=== PATIENT | female | born 1955 | race Caucasian/White ===

== ENCOUNTER 2021-01-31 05:32 | Day surgery (SDC) | payer OTHER ==
[2021-01-31] MEDS ORDERED: Lactated Ringers 1,000 ML IV SCH (06:00)
[2021-01-31] MEDS ORDERED: Nozin Nasal Sanitizer NASBOTH ONE (06:00)
[2021-01-31] MEDS ORDERED: Bupivacaine 0.5% 30 ML SDV ONE ×2 (06:34→07:27)
[2021-01-31] MEDS ORDERED: ceFAZolin 1 GM in Premix Bag 1 BAG IV ONE (07:00)
[2021-01-31] MEDS ORDERED: Propofol 200 MG/20 ML SDV ONE ×2 (07:26→08:40)
[2021-01-31] MEDS ORDERED: Midazolam 1 MG/ML 2 ML SDV ONE (07:26)
[2021-01-31] MEDS ORDERED: fentaNYL 100 MCG/2 ML SDV ONE (07:26)
[2021-01-31] MEDS ORDERED: Lactated Ringers 1,000 ML ONE (08:42)
--- NOTE | 2021-02-07 14:38 | OR ---
DATE OF PROCEDURE: 01/31/2021 SURGEON: Jude Silva MD PREOPERATIVE DIAGNOSIS: Recurrent rotator cuff tear, right shoulder. POSTOPERATIVE DIAGNOSIS: Recurrent partial-thickness rotator cuff tear, right shoulder with loose sutures from previous repair. PROCEDURE: Arthroscopy, right shoulder, with repair of rotator cuff. RESIDENTIAL DESIGNER: KELLIE Nieves. ANESTHESIA: Interscalene block with sedation. INDICATIONS: Aisha is a 65-year-old female with a history of previous rotator cuff repair. She had been doing well with this and was back to normal activities. She recently lifted a heavy object and felt a pull in the right shoulder and has had persistent pain and clicking sensation since then. Followup MRI reveals recurrent rotator cuff tear. She is, therefore, brought to the operating room for repair. Risks, benefits, potential complications were discussed. DESCRIPTION OF PROCEDURE: After adequate anesthesia was obtained, patient was placed in the lateral decubitus position and secured with the beanbag positioner. Right shoulder and arm were prepped and draped in sterile fashion and 10 pounds of traction was placed in the shoulder traction unit. Standard posterior portal was established and glenohumeral joint was inspected. This revealed no evidence of articular cartilage damage to the humeral head or glenoid. The labrum was intact. The biceps tendon was intact as was the biceps anchor. Subscapularis was intact. The undersurface of the rotator cuff revealed evidence of previous repair with suture through the tendon, which had pulled loose and evidence of at least recurrent partial-thickness tear. Position of the loose suture and partial tear was marked through a spinal needle with a PDS suture. The scope was withdrawn from the joint and placed in the subacromial space. Some minor irregularity of the bursa was cleared with a radiofrequency ablation wand. The rotator cuff was inspected and the area that was marked showed no retraction of the tendon. However, palpation with a probe revealed a very small full-thickness tear and area of thinning consistent with partial-thickness tear. A small longitudinal incision was made in the partial-thickness tear. The scope was then turned to the intra-articular position, and working through the small incision in the cuff, loose sutures were debrided with a shaver. Rotator cuff insertion was also debrided. A phani was then utilized to lightly decorticate the superior aspect of the greater tuberosity footprint. Using the [employer] transtendon system, 2 anchors were placed into the tuberosity, one slightly anterior to the partial tear and one slightly posterior. Using a Peter suture passer through a spinal needle, one limb of each of the pairs of suture was passed through the tendon proximal to the partial tear. Scope was then moved back to the subacromial space. The sutures that were passed through the tendon were brought out through the lateral portal and tied together. The other suture limbs were then pulled, bringing the knot down into the subacromial space over the tendon in a double arai technique. Remaining suture limbs were then tied using standard arthroscopic technique. This resulted in a good approximation of the rotator cuff to the tuberosity. No other abnormalities were identified. The shoulder was drained and scope was withdrawn. Port sites were closed in a standard fashion and a sterile dressing was applied. The patient tolerated procedure well. There were no complications, taken from the operating room in stable condition. Jude Silva MD /[id number]
== END 2021-01-31 11:20 | disposition home or self-care (01) ==
LOC: JP.SDS 05:32
PROVIDERS: ATTEND Specialist
DX: M75.111 Incomplete rotator cuff tear or rupture of right shoulder, not specified as traumatic (principal); I10 Essential (primary) hypertension; E78.5 Hyperlipidemia, unspecified
CPT/HCPCS: 29827; 36415; 80053; 85027; A9270; C1713; J0690; J2250; J2704; J3010; J3490; J7120

== ENCOUNTER 2022-11-30 13:31 | Emergency (ER) | payer OTHER ==
[2022-11-30] MEDS ORDERED: Bacitracin Oint 1 GM U/D Packet TOP ONE (14:19)
[2022-11-30] MEDS ORDERED: Lidocaine 1% 5 ML VIAL INJECT ONE (14:19)
== END 2022-11-30 15:12 | disposition home or self-care (01) ==
LOC: JP.ED 13:31
DX: S01.81XA Laceration without foreign body of other part of head, initial encounter (principal); Z79.82 Long term (current) use of aspirin; W01.0XXA Fall on same level from slipping, tripping and stumbling without subsequent striking against object, initial encounter
CPT/HCPCS: 12011; 99282